=== PATIENT | male | born 1965 | race Caucasian/White ===

== ENCOUNTER 2020-10-07 21:16 | Emergency (ER) | payer OTHER ==
[~2020-10-07] VITALS: Ht 167.6 cm; Wt 66.7 kg
[2020-10-08] MEDS ORDERED: NORFLEX100MG PO (03:27)
[2020-10-08] MEDS ORDERED: KETO10TA2 PO (03:27)
== END 2020-10-08 03:58 | disposition home or self-care (01) ==
LOC: ER 21:16
DX: S80.12XA Contusion of left lower leg, initial encounter (principal); W11.XXXA Fall on and from ladder, initial encounter; Y93.89 Activity, other specified; Y92.018 Other place in single-family (private) house as the place of occurrence of the external cause; Y99.8 Other external cause status